=== PATIENT | male | born 1935 | race Caucasian/White ===

== ENCOUNTER → 2018-09-12 | Outpatient (CLI) | payer MEDICARE ==
[~2018-09-12] MED LIST: ADENOSINE 57 MG in GIVE UN-DILUTED 0 ML IV ONE; ADENOSINE 90 MG/30 ML INJ IV ONE
[2018-09-13 11:53] LABS: Urine Blood TRACE /uL (Negative); Urine Specific Gravity 1.011 (1.001-1.035)
[2018-09-13 12:04] LABS: Basophils # (auto) 0.1 uL; Basophils % (auto) 0.8 % (0.0-2.0); Eosinophils # (auto) 0.2 uL; Hemoglobin 14.6 g/dL (13.5-17.5); Lymphocytes # (auto) 0.8 uL; Lymphocytes % (auto) 10.2 % (10.0-50.0); Mean Corpuscular Hemoglobin 32.5 pg (28.0-32.0); Mean Corpuscular Hgb Conc. 32.5 g/dL (32.0-36.0); Mean Corpuscular Volume 100.1 fL (80.0-100.0); Monocytes # (auto) 0.4 uL; Monocytes % (auto) 5.6 % (0.0-12.0); Neutrophils # (auto) 6.3 uL; Neutrophils % (auto) 81.4 % (37.0-80.0); Nucleated Red Blood Cells % 0.1 %; Platelet Count (auto) 236 10^3/uL (140-450); Red Cell Distribution Width 15.2 % (11.8-14.3); White Blood Cell 7.7 10^3/uL (4.4-10.8)
[2018-09-13 12:16] LABS: Albumin 3.8 g/dL (3.4-5.0); Calcium 8.8 mg/dL (8.5-10.1); Potassium 4.2 mmol/L (3.5-5.1)
[2018-09-13 12:20] LABS: Free T4 (Free Thyroxine) 1.28 ng/dL (0.89-1.76)
[2018-09-13 12:22] LABS: BUN/Creatinine Ratio 21.1; Bilirubin, Total 1.4 mg/dL (0.2-1.0); Total Protein 7.2 g/dL (6.4-8.2)
[2018-09-13 12:25] LABS: Prostate Specific Antigen 9.99 ng/mL (0.0-4.0)
== END | disposition home or self-care (01) ==
LOC: Rad HDHVI 13:56
PROVIDERS: ATTEND Internal Medicine Cardiovascular Disease
DX: Z13.1 Encounter for screening for diabetes mellitus (principal); I08.0 Rheumatic disorders of both mitral and aortic valves; E03.9 Hypothyroidism, unspecified; E55.9 Vitamin D deficiency, unspecified; C61 Malignant neoplasm of prostate; E29.1 Testicular hypofunction; D51.9 Vitamin B12 deficiency anemia, unspecified; N39.0 Urinary tract infection, site not specified
CPT/HCPCS: 36415; 78452; 80053; 80061; 81003; 82306; 82607; 83036; 84153; 84154; 84403; 84439; 84443; 85025; 93005; 93306; 96374; 96375; A9500; J0153

== ENCOUNTER 2018-11-17 10:02 | Inpatient (IN) | payer MEDICARE | END 2018-11-24 19:25 | disposition home or self-care (01) | LOC: ER 10:02 → TELE 10:03 → TELE-EAST 14:32 | DX: A41.9 Sepsis, unspecified organism (principal); N39.0 Urinary tract infection, site not specified; N17.9 Acute kidney failure, unspecified; I95.9 Hypotension, unspecified; G20 Parkinson's disease; I48.91 Unspecified atrial fibrillation; E86.9 Volume depletion, unspecified; G90.9 Disorder of the autonomic nervous system, unspecified ==

== ENCOUNTER 2018-12-09 13:31 | Inpatient (IN) | payer MEDICARE ==
[~2018-12-09] VITALS: Ht 175.3 cm; Wt 79.4 kg
[~2018-12-09 13:31] MED LIST changes: -ADENOSINE 57 MG in GIVE UN-DILUTED 0 ML IV ONE; -ADENOSINE 90 MG/30 ML INJ IV ONE; +ALLO300T2 PO; +ALPR0.254 PO; +AMIO200T33 PO; +BISA-4 PO; +CARB25TA22 PO; +FINA5TAB4 PO; +HYDR-4683 PO; +MEGE40TA15 PO; +METO25TA5 PO; +PANT1INJ3 PO; +POTA10TA51 PO; +PRA25T PO; +PRAV20TA3 PO; +RIV20T PO; +SENN1TAB14 PO; +TAMS0.4C36 PO
[2018-12-09] MEDS ORDERED: SODIUM CHLORIDE 0.9% 1,000 ML IVB ONE (14:13)
[2018-12-09 15:15] LABS: Basophils # (auto) 0 uL; Basophils % (auto) 0.2 % (0.0-2.0); Eosinophils # (auto) 0.1 uL; Eosinophils % (auto) 0.5 % (0.0-7.0); Hemoglobin 14.4 g/dL (13.5-17.5); Lymphocytes # (auto) 0.6 uL; Mean Corpuscular Hgb Conc. 32.7 g/dL (32.0-36.0); Mean Corpuscular Volume 97.9 fL (80.0-100.0); Monocytes # (auto) 0.5 uL; Monocytes % (auto) 2.8 % (0.0-12.0); Neutrophils # (auto) 15.1 uL; Neutrophils % (auto) 92.5 % (37.0-80.0); Platelet Count (auto) 199 10^3/uL (140-450); Red Cell Distribution Width 14.8 % (11.8-14.3); White Blood Cell 16.3 10^3/uL (4.4-10.8)
[2018-12-09 15:22] LABS: INR 1.04 (0.9-1.15); Partial Thromboplastin Time 31.9 sec (23.64-32.05)
[2018-12-09 15:44] LABS: Albumin 3.4 g/dL (3.4-5.0); Anion Gap 7 (5-15); Blood Urea Nitrogen 23 mg/dL (7-18); Calcium 8.8 mg/dL (8.5-10.1); Carbon Dioxide 21 mmol/L (21-32); Chloride 108 mmol/L (98-107); Glucose 81 mg/dL (74-106); Magnesium 2.2 mg/dL (1.6-2.6); Potassium 4.2 mmol/L (3.5-5.1); Sodium 136 mmol/L (136-145)
[2018-12-09 15:50] LABS: Alanine Aminotransferase 6 U/L (16-61); Alkaline Phosphatase 121 U/L (45-117); Aspartate Aminotransferase 10 U/L (15-37); BUN/Creatinine Ratio 14.6; Bilirubin, Total 1.9 mg/dL (0.2-1.0); GFR African American 55 mL/min; GFR Non-African American 45 mL/min; Total Protein 6.6 g/dL (6.4-8.2)
[2018-12-09 16:36] LABS: Urine Bacteria FEW /hpf (None Seen); Urine Blood 1+ /uL (Negative); Urine Mucus MODERATE (None Seen); Urine Specific Gravity 1.014 (1.001-1.035); Urine WBC 142 /hpf (0 - 3); Urine WBC Clumps PRESENT /hpf (None Seen)
[2018-12-09] MEDS ORDERED: SODIUM CHLORIDE 0.9% 1,000 ML IV ONE (17:00)
[2018-12-09] MEDS ORDERED: cefTRIAXone 1GM/50ML D5W 50 ML IV ONE (17:00)
[2018-12-09] MEDS ORDERED: BISACODYL 5 MG EC TAB PO PRN ×2 (18:30→23:15)
[2018-12-09] MEDS ORDERED: MORPHINE SULF INJ 2 MG/ML SYRINGE 1ML IV PRN ×2 (18:30→23:30)
[2018-12-09] MEDS ORDERED: NITROGLYCERIN 0.4 MG SL TAB SL PRN ×2 (18:30→23:15)
--- NOTE | 2018-12-09 19:52 | NUR ---
Telemetry admit from [facility] admitted to Telemetry unit after SBAR received from Nereida. Patient oriented to ONEIDA MARIN RN primary RN, unit, room, bed, and unit policies regarding patient care and visiting hours. Patient now on continuous telemetry monitoring, tele box # 28 and telemetry reading on arrival to unit is A-fib. Randall is in place, hung below bladder and draining yelena colored urine with blood noted. Patient is alert to self only, no complaints of pain or S/S of SOB or distress. Sitter is at bedside for safety precautions. Patient weighed by bedscale and encouraged to call if they need something. All questions and concerns addressed, patient verbalized understanding.
[2018-12-09 20:32] VITALS: BP 159/94
--- NOTE | 2018-12-09 21:20 | NUR ---
Patient's called, after giving the password she was updated on patient's status. She provided the list of medications the patient currently takes at home to complete the medication reconciliation.
[2018-12-09] MEDS ORDERED: ALBU2TAB4 NEB (21:32)
[2018-12-09] MEDS ORDERED: DOCU-94 PO (21:32)
[2018-12-09] MEDS ORDERED: FURO40TA4 PO (21:32)
[2018-12-09] MEDS ORDERED: APIX2.5T OR (21:32)
[2018-12-09] MEDS ORDERED: CARBIDOPA W LEVODOPA 25/100mg TABLET PO SCH (22:00)
[2018-12-09] MEDS ORDERED: PRAMIPEXOLE DIHYDROCHLORIDE MO 0.25 MG TAB PO SCH (22:00)
[2018-12-09] MEDS ORDERED: HYDROcodone-ACET 5/325MG TAB PO SCH (22:00)
[2018-12-09] MEDS ORDERED: SODIUM CHLORIDE 0.9% 1,000 ML IV SCH (22:00)
[2018-12-09] MEDS ORDERED: MEGESTROL ACETATE 20 MG TAB PO SCH (22:00)
[2018-12-09] MEDS ORDERED: PRAVASTATIN SODIUM 20 MG TAB PO SCH (22:00)
--- NOTE | 2018-12-09 23:06 | NUR ---
I called after hours pharmacy because the medications were not showing up in the medication pyxis and was told it was an IT issue.
--- NOTE | 2018-12-09 23:15 | NUR ---
Renewed the medications on the orders and called after hours pharmacy to ask them to verify the orders, they stated they will work on it but it may take a bit because they are helping a few people before me who are also having issues.
[2018-12-10] MEDS ORDERED: PRAVASTATIN SODIUM 20 MG TAB ONE (00:06)
[2018-12-10] MEDS ORDERED: PRAMIPEXOLE DIHYDROCHLORIDE MO 0.25 MG TAB ONE (00:06)
--- NOTE | 2018-12-10 00:11 | NUR ---
2200 medications given late due to trouble with the medications being available on the pyxis.
--- NOTE | 2018-12-10 00:20 | NUR ---
Two wound care photos taken of right arm. Paperwork was placed in central because I used the central wing wound care camera.
[2018-12-10 05:03] VITALS: BP 140/81
[2018-12-10] MEDS: HYDROcodone-ACET 5/325MG TAB PO SCH ×3 (05:46→21:30)
[2018-12-10] MEDS: CARBIDOPA W LEVODOPA 25/100mg TABLET PO SCH ×4 (05:47→21:29)
[2018-12-10] MEDS: PANTOPRAZOLE 40 MG TAB PO SCH (05:49)
[2018-12-10 09:00] VITALS: BP 132/75
[2018-12-10] MEDS ORDERED: ALLOPURINOL 100 MG TAB PO SCH (10:00)
[2018-12-10] MEDS ORDERED: FINASTERIDE 5 MG TAB PO SCH (10:00)
[2018-12-10] MEDS: TAMSULOSIN HYDROCHLORIDE 0.4 MG CAP PO SCH (10:00)
[2018-12-10] MEDS ORDERED: AMIODARONE HCL 200 MG TAB PO SCH (10:00)
[2018-12-10] MEDS ORDERED: TAMSULOSIN HYDROCHLORIDE 0.4 MG CAP PO SCH (10:00)
[2018-12-10] MEDS ORDERED: cefTRIAXone 1GM/50ML D5W 50 ML IV SCH ×2 (10:00→17:00)
[2018-12-10] MEDS: MEGESTROL ACETATE 20 MG TAB PO SCH ×2 (10:00→21:29)
[2018-12-10] MEDS: AMIODARONE HCL 200 MG TAB PO SCH (10:00)
[2018-12-10] MEDS ORDERED: METOPROLOL SUCCINATE XL 50 MG TAB PO SCH (10:00)
[2018-12-10] MEDS ORDERED: PANTOPRAZOLE 40 MG TAB PO SCH (10:00)
[2018-12-10] MEDS: FINASTERIDE 5 MG TAB PO SCH (10:33)
[2018-12-10] MEDS: ALLOPURINOL 100 MG TAB PO SCH (10:34)
[2018-12-10] MEDS: METOPROLOL SUCCINATE XL 50 MG TAB PO SCH (10:34)
[2018-12-10 13:00] VITALS: BP 121/66
[2018-12-10 17:00] VITALS: BP 139/69
[2018-12-10] MEDS: cefTRIAXone 1GM/50ML D5W 50 ML IV SCH (18:55)
--- NOTE | 2018-12-10 19:13 | NUR ---
Opening Shift Note Assumed care of patient, awake and alert to self. Sitter is at bedside for safety. Randall is in place, hung below the bladder and draining bloody urine. No S/S of distress/SOB or pain. Instructed on POC and to call for assist PRN, will continue to monitor for changes Q1hr and PRN.
[2018-12-10] MEDS: PRAMIPEXOLE DIHYDROCHLORIDE MO 0.25 MG TAB PO SCH (21:29)
[2018-12-10] MEDS: PRAVASTATIN SODIUM 20 MG TAB PO SCH (21:30)
[2018-12-10 22:00] VITALS: BP 133/85
[2018-12-11] MEDS: SODIUM CHLORIDE 0.9% 1,000 ML IV SCH ×2 (01:35→13:03)
[2018-12-11 05:00] VITALS: BP 126/90
[2018-12-11] MEDS: HYDROcodone-ACET 5/325MG TAB PO SCH ×3 (06:00→21:47)
[2018-12-11] MEDS: CARBIDOPA W LEVODOPA 25/100mg TABLET PO SCH ×4 (06:24→21:44)
[2018-12-11] MEDS: PANTOPRAZOLE 40 MG TAB PO SCH (06:26)
--- NOTE | 2018-12-11 07:20 | NUR ---
PT AWAKE, ALERT, ORIENTED TO PERSON, , PLACE. PT DENIES DISCOMFORT AT MOMENT. EFFORTLESS BREATHING ON ROOM AIR. IV PRESENT AND INFUSING WELL TO LFA#22. MCNALLY CATHETER IN PLACE, SECURED, FREE OF KINKS, PATENT WITH DARK ROBER URINE IN COLLECTING BAG. BED LOCKED AND IN LOWEST POSITION, CALL LIGHT WITHIN REACH, PT UNDER CLOSE OBSERVATION. WILL CONTINUE TO MONITOR.
[2018-12-11 09:00] VITALS: BP 104/59
--- NOTE | 2018-12-11 10:40 | NUR ---
HYGIENE CARE PROVIDED. HYDRA-GUARD WITH OPTIFOAM DRESSING APPLIED TO SACRAL BLANCHABLE ERYTHEMA (BONY PROMINENCE). COMFORTABLE ENVIRONMENT PROVIDED, CALL LIGHT WITHIN REACH. SITTER AT BEDSIDE.
[2018-12-11] MEDS: cefTRIAXone 1GM/50ML D5W 50 ML IV SCH (10:43)
[2018-12-11] MEDS: AMIODARONE HCL 200 MG TAB PO SCH (10:43)
[2018-12-11] MEDS: ALLOPURINOL 100 MG TAB PO SCH (10:44)
[2018-12-11] MEDS: MEGESTROL ACETATE 20 MG TAB PO SCH ×2 (10:44→21:43)
[2018-12-11] MEDS: FINASTERIDE 5 MG TAB PO SCH (10:44)
[2018-12-11] MEDS: TAMSULOSIN HYDROCHLORIDE 0.4 MG CAP PO SCH (10:45)
[2018-12-11] MEDS: METOPROLOL SUCCINATE XL 50 MG TAB PO SCH (10:46)
[2018-12-11 13:00] VITALS: BP 128/62
--- NOTE | 2018-12-11 15:50 | NUR ---
assessment Patient is a 83 year old male who is confused. Per patients Angela patient lived home with her and their son prior to admission. Per Angela she and her son assist patient at home. Per Angela patient has a hospital bed, wheelchair, and fww for home use. Patients PCP is Dr Moser. Patient is on service with [employer]. Patient will need a resumption order for home health on discharge. Angela verbalized understanding and agreed to discharge plan home on discharge. Addendum: 12/13/18 at 1600 by Laila YEPEZ Amended: Links added.
[2018-12-11 17:00] VITALS: BP 155/90
--- NOTE | 2018-12-11 18:50 | NUR ---
MCNALLY CATHETER CARE COMPLETED.
[2018-12-11] MEDS: PRAMIPEXOLE DIHYDROCHLORIDE MO 0.25 MG TAB PO SCH (21:43)
[2018-12-11] MEDS: PRAVASTATIN SODIUM 20 MG TAB PO SCH (21:44)
[2018-12-11 22:00] VITALS: BP 146/73
[2018-12-12] MEDS: SODIUM CHLORIDE 0.9% 1,000 ML IV SCH ×2 (03:57→17:31)
[2018-12-12 05:00] VITALS: BP 131/78
[2018-12-12] MEDS: HYDROcodone-ACET 5/325MG TAB PO SCH ×3 (06:00→21:27)
[2018-12-12] MEDS: PANTOPRAZOLE 40 MG TAB PO SCH (06:53)
[2018-12-12] MEDS: CARBIDOPA W LEVODOPA 25/100mg TABLET PO SCH ×4 (06:53→21:26)
--- NOTE | 2018-12-12 08:00 | NUR ---
Sitter at bedside for patient safety.
--- NOTE | 2018-12-12 08:00 | NUR ---
Opening Shift Note Assumed care of patient, awake, alert and oriented X2. No S/S of distress/SOB or pain. Tele# 28, sinus rhythm @ 95 bpm. IV to left forearm, 22 gauge, patent and infusing 0.9% NS @ 75 ml/hr. Urethral Randall catheter, draining clear, yellow urine to gravity. Instructed on POC and to call for assist PRN, verbalized understanding. Patient is aspiration precautions. Bed locked, in lowest position, call light within reach, will continue to monitor for changes Q1hr and PRN.
[2018-12-12 09:00] VITALS: BP 105/49
[2018-12-12] MEDS: AMIODARONE HCL 200 MG TAB PO SCH (10:00)
[2018-12-12] MEDS: TAMSULOSIN HYDROCHLORIDE 0.4 MG CAP PO SCH (10:00)
[2018-12-12] MEDS: METOPROLOL SUCCINATE XL 50 MG TAB PO SCH (10:00)
[2018-12-12] MEDS: cefTRIAXone 1GM/50ML D5W 50 ML IV SCH (12:13)
[2018-12-12] MEDS: FINASTERIDE 5 MG TAB PO SCH (12:14)
[2018-12-12] MEDS: MEGESTROL ACETATE 20 MG TAB PO SCH ×2 (12:14→21:26)
[2018-12-12] MEDS: ALLOPURINOL 100 MG TAB PO SCH (12:15)
[2018-12-12 13:00] VITALS: BP 153/78
[2018-12-12] MEDS ORDERED: MAGNESIUM CITRATE SOLUTION 300 ML BTL PO ONE (15:30)
[2018-12-12 17:00] VITALS: BP 112/58
--- NOTE | 2018-12-12 17:20 | NUR ---
Per consult for home health. Information and choice letter was given to Pt. Pt requested [facility]. Pt agrees and understand d/c plan. Contacted [facility] Ph: ) Fax: ( [phone] faxed medical records. Per Ted from [facility] Pt has been accepted and service to start within 48 hours upon d/c. Informed SHIRLENE Rajput. Addendum: 12/12/18 at 1723 by PHILIPPE RIOS Amended: Links added.
--- NOTE | 2018-12-12 19:34 | NUR ---
Care endorsed to SHIRLENE Vazquez, night nurse.
--- NOTE | 2018-12-12 20:00 | NUR ---
Opening Shift Note Assumed care of patient, awake and alert. No S/S of distress/SOB or pain. Instructed on POC and to call for assist PRN, will continue to monitor for changes Q1hr and PRN.Randall cath. in placed draining yellow urine output min. hematuria.
[2018-12-12] MEDS: PRAVASTATIN SODIUM 20 MG TAB PO SCH (21:37)
[2018-12-12] MEDS: PRAMIPEXOLE DIHYDROCHLORIDE MO 0.25 MG TAB PO SCH (21:37)
[2018-12-12 22:07] VITALS: BP 155/77
[2018-12-13] MEDS: PANTOPRAZOLE 40 MG TAB PO SCH (05:30)
[2018-12-13] MEDS: CARBIDOPA W LEVODOPA 25/100mg TABLET PO SCH ×4 (05:30→22:39)
[2018-12-13] MEDS: HYDROcodone-ACET 5/325MG TAB PO SCH ×3 (05:31→22:39)
[2018-12-13 05:50] VITALS: BP 140/80
[2018-12-13] MEDS: SODIUM CHLORIDE 0.9% 1,000 ML IV SCH ×2 (06:03→22:45)
--- NOTE | 2018-12-13 07:09 | NUR ---
Report given to Josy Ahn, patient is resting no distress.
--- NOTE | 2018-12-13 08:00 | NUR ---
Opening Shift Note Assumed care of patient, awake, alert and oriented X2, to self and year. No S/S of distress/SOB or pain. Tele# 28, A-Fib @ 76 bpm. IV to left forearm, 22 gauge, patent and infusing 0.9$ NS @ 75 ml/hr. Urethral Randall catheter draining clear, light yelena urine to gravity. Instructed on POC and to call for assist PRN, verbalized understanding but requires frequent reminding and reorienting. Bed locked, in lowest position, call light within reach, sitter remains at bedside for patient safety, will continue to monitor for changes Q1hr and PRN.
[2018-12-13 08:49] VITALS: BP 137/76
[2018-12-13] MEDS: cefTRIAXone 1GM/50ML D5W 50 ML IV SCH (10:01)
[2018-12-13] MEDS: AMIODARONE HCL 200 MG TAB PO SCH (10:02)
[2018-12-13] MEDS: MEGESTROL ACETATE 20 MG TAB PO SCH ×2 (10:02→22:38)
[2018-12-13] MEDS: TAMSULOSIN HYDROCHLORIDE 0.4 MG CAP PO SCH (10:02)
[2018-12-13] MEDS: FINASTERIDE 5 MG TAB PO SCH (10:02)
[2018-12-13] MEDS: METOPROLOL SUCCINATE XL 50 MG TAB PO SCH (10:03)
[2018-12-13] MEDS: ALLOPURINOL 100 MG TAB PO SCH (10:05)
--- NOTE | 2018-12-13 11:00 | NUR ---
WOUND CARE NOTE: ADDED PATIENT TO SKIN INTEGRITY MONITORING AT THIS TIME, D/T LOW TOMAS SCOR 11. PATIENT WAS ADMITED TO [facility] WITH DIAGNOSIS OF HEMATURIA. CURRENT TOMAS SCORE IS 11. PATIENT RECENTLY AMBULATED IN HALLWAY WITH ASSISTANCE BY PHYSICAL THERAPY. HE IS WOUND FREE AT THIS TIME. SKIN/WOUND CARE PLAN IMPLEMENTED. PATIENT SHOULD BE TURNED/REPOSITIONED Q 2 HOURS, PRN WHEN IN BED, WITH PRESSURE REDISTRIBUTION USING PILLOWS/WEDGES, BID/PRN APPLICATION WITH MOISTURE BARRIER CREAM, OPTIFOAM GENTLE SACRAL DRESSING PREVENTATIVE, SKIN/WOUND CARE PLAN, DIETARY CONSULT FOR LOW TOMAS 11, CONTINUED MONITORING BY WOUND CARE TEAM.
--- NOTE | 2018-12-13 12:00 | NUR ---
ROUNDS Dr Jimy Nails at bedside for rounds. New orders received and followed through. Patient and at bedside updated on plan of care, verbalized understanding.
--- NOTE | 2018-12-13 12:17 | NUR ---
Nutrition Assessment Notes please see attached link for complete assessment Est. Needs BW [id number] kcal (25-30 kcal/kgBW), 60-75 gms pro (0.8-1.0 gms/kgBW r/t elev RFT). Will continue to monitor pertinent labs and reassess nutrient need prn Addendum: 12/13/18 at [address] Amended: Links added.
[2018-12-13 12:42] VITALS: BP 133/74
--- NOTE | 2018-12-13 16:13 | NUR ---
ABD/PELVIC CT Awaiting abd/pelvic CT results completed @ 7015. Spoke to Eveline in radiology, informed we need the report, per Eveline, she will inform the [facility] to contact the department.
[2018-12-13 16:48] VITALS: BP 130/78
--- NOTE | 2018-12-13 17:30 | NUR ---
UROLOGY Kayce Scherer at bedside for Urology consult, new orders received and followed through. Patient updated on plan of care, verbalized understanding.
--- NOTE | 2018-12-13 18:51 | NUR ---
IV removal IV DC'd to left forearm with sterile technique, catheter fully intact. Pressure dressing applied to site.Patient tolerated procedure well. Discharged with aftercare instructions per MD. IV insertion IV access obtained, via clean sterile technique by inserting 22 gauge catheter at right hand after 3 attempt(s). IV secured properly. No trauma to site. Patient tolerated procedure well.
--- NOTE | 2018-12-13 19:00 | NUR ---
Care endorsed to SHIRLENE Dubois, night nurse.
[2018-12-13 21:15] VITALS: BP 117/68
[2018-12-13] MEDS: PRAVASTATIN SODIUM 20 MG TAB PO SCH (22:38)
[2018-12-13] MEDS: PRAMIPEXOLE DIHYDROCHLORIDE MO 0.25 MG TAB PO SCH (22:38)
--- NOTE | 2018-12-13 22:54 | NUR ---
Called/paged Dr. Moser called re:request for breathing treatment order for wheezing hx of copd saturation 95%on 2L NC . Waiting for call back. Continue care.
[2018-12-14 04:43] VITALS: BP 124/72
[2018-12-14] MEDS: HYDROcodone-ACET 5/325MG TAB PO SCH (06:00)
[2018-12-14] MEDS: PANTOPRAZOLE 40 MG TAB PO SCH (06:43)
[2018-12-14] MEDS: CARBIDOPA W LEVODOPA 25/100mg TABLET PO SCH ×2 (06:43→14:30)
[2018-12-14] MEDS: SODIUM CHLORIDE 0.9% 1,000 ML IV SCH (06:44)
--- NOTE | 2018-12-14 07:30 | NUR ---
OPENING NOTE ASSUMED CARE OF PATIENT. PATIENT ALERT AND ORIENTED TO SELF. NO SINGS OF SOB/DISTRESS. BED SET TO LOWEST POSITION/LOCKED. BEDSIDE RAILS UP X2. BED ALARM ON. CALL LIGHT WITHIN REACH. WILL CONTINUE TO MONITOR Q1HR AND PRN.
[2018-12-14 08:39] VITALS: BP 163/85
[2018-12-14] MEDS: TAMSULOSIN HYDROCHLORIDE 0.4 MG CAP PO SCH (09:14)
[2018-12-14] MEDS: MEGESTROL ACETATE 20 MG TAB PO SCH (09:14)
[2018-12-14] MEDS: cefTRIAXone 1GM/50ML D5W 50 ML IV SCH (09:14)
[2018-12-14] MEDS: FINASTERIDE 5 MG TAB PO SCH (09:14)
[2018-12-14] MEDS: AMIODARONE HCL 200 MG TAB PO SCH (09:15)
[2018-12-14] MEDS: METOPROLOL SUCCINATE XL 50 MG TAB PO SCH (09:15)
[2018-12-14] MEDS: ALLOPURINOL 100 MG TAB PO SCH (09:15)
[2018-12-14 12:34] VITALS: BP 153/88
[2018-12-14 14:48] VITALS: BP 153/88
--- NOTE | 2018-12-14 15:43 | NUR ---
Discharge instructions and paperwork given as MD ordered. Patient is to follow-up with Dr. Moser on 01/10/19 @ 2:50PM. [id number], [place] [address]. . All questions and concerns addressed with patients . verbalized understanding. IV removed with catheter intact, pressure dressing applied. Telemetry unit returned to ICU.
--- NOTE | 2018-12-14 16:28 | NUR ---
Patient taken to vehicle via wheelchair with all personal belongings, accompanied by staff and family member. No distress noted at time of departure.
== END 2018-12-14 17:00 | disposition home health service (06) | DRG 871 ==
LOC: ER 13:31 → TELE 13:32 → ER 16:08 → TELE 19:49 → TELE-WESTW 23:03
PROVIDERS: ADMIT Internal Medicine Cardiovascular Disease; ATTEND Family Medicine
DX: A41.9 Sepsis, unspecified organism (principal); G93.41 Metabolic encephalopathy; N13.8 Other obstructive and reflux uropathy; N39.0 Urinary tract infection, site not specified; N40.1 Benign prostatic hyperplasia with lower urinary tract symptoms; G20 Parkinson's disease; E86.9 Volume depletion, unspecified; F02.80 Dementia in other diseases classified elsewhere, unspecified severity, without behavioral disturbance, psychotic disturbance, mood disturbance, and anxiety; I11.0 Hypertensive heart disease with heart failure; I50.9 Heart failure, unspecified; I48.91 Unspecified atrial fibrillation; J44.9 Chronic obstructive pulmonary disease, unspecified; I70.0 Atherosclerosis of aorta; K46.9 Unspecified abdominal hernia without obstruction or gangrene; N40.0 Benign prostatic hyperplasia without lower urinary tract symptoms; N32.0 Bladder-neck obstruction; Z86.73 Personal history of transient ischemic attack (TIA), and cerebral infarction without residual deficits; Z80.1 Family history of malignant neoplasm of trachea, bronchus and lung; Z80.3 Family history of malignant neoplasm of breast; I25.2 Old myocardial infarction; Z82.49 Family history of ischemic heart disease and other diseases of the circulatory system; Z74.01 Bed confinement status; Z88.5 Allergy status to narcotic agent; Z79.01 Long term (current) use of anticoagulants; Z90.49 Acquired absence of other specified parts of digestive tract
CPT/HCPCS: 36415; 51702; 70450; 71045; 74176; 80053; 81001; 82962; 83605; 83735; 84484; 85025; 85610; 85730; 87040; 87086; 93005; 94761; 96374; G0378; J0696

== ENCOUNTER 2019-01-16 19:11 | Emergency (ER) | payer MEDICARE ==
[~2019-01-16] VITALS: Ht 177.8 cm; Wt 104.3 kg
[~2019-01-16 19:11] MED LIST changes: +ALBU2TAB4 NEB; +APIX2.5T OR; +DOCU-94 PO; +FURO40TA4 PO; -HYDR-4683 PO; +HYDR-4833 PO; -RIV20T PO
[2019-01-16] MEDS ORDERED: IPRATROPIUM BROM 0.5 MG/2.5ML INH SOL NEB ONE (21:15)
[2019-01-16] MEDS ORDERED: ALBUTEROL SULF 2.5 MG/0.5ML(0.5%) NEB SOLN NEB ONE (21:15)
[2019-01-16 21:44] LABS: Basophils # (auto) 0 uL; Eosinophils # (auto) 0.1 uL; Eosinophils % (auto) 1.1 % (0.0-7.0); Hematocrit 38.2 % (41.0-53.0); Hemoglobin 12.5 g/dL (13.5-17.5); Lymphocytes # (auto) 1.1 uL; Lymphocytes % (auto) 8.4 % (10.0-50.0); Mean Corpuscular Hemoglobin 31.6 pg (28.0-32.0); Mean Corpuscular Hgb Conc. 32.7 g/dL (32.0-36.0); Mean Corpuscular Volume 96.5 fL (80.0-100.0); Monocytes # (auto) 0.7 uL; Neutrophils # (auto) 11.3 uL; Neutrophils % (auto) 85.5 % (37.0-80.0); Platelet Count (auto) 233 10^3/uL (140-450); Red Blood Cells 3.96 10^6/uL (4.5-5.90); Red Cell Distribution Width 15.2 % (11.8-14.3); White Blood Cell 13.3 10^3/uL (4.4-10.8)
[2019-01-16 22:03] LABS: Alanine Aminotransferase < 6 U/L (16-61); Albumin 2.8 g/dL (3.4-5.0); Anion Gap 7 (5-15); Blood Urea Nitrogen 27 mg/dL (7-18); Calcium 8.2 mg/dL (8.5-10.1); Carbon Dioxide 24 mmol/L (21-32); Chloride 113 mmol/L (98-107); Glucose 93 mg/dL (74-106); Sodium 144 mmol/L (136-145)
[2019-01-16 22:08] LABS: Alkaline Phosphatase 68 U/L (45-117); Aspartate Aminotransferase 23 U/L (15-37); BUN/Creatinine Ratio 19.7; Bilirubin, Total 0.8 mg/dL (0.2-1.0); GFR African American 64 mL/min; GFR Non-African American 53 mL/min; Total Protein 5.7 g/dL (6.4-8.2)
[2019-01-16 23:11] LABS: INR 0.97 (0.9-1.15); Partial Thromboplastin Time 28.2 sec (23.64-32.05)
[2019-01-16 23:51] LABS: Urine Bacteria MOD /hpf (None Seen); Urine Blood 3+ /uL (Negative); Urine Hyaline Cast MOD /lpf (0 - 2); Urine Mucus FEW (None Seen); Urine WBC 320 /hpf (0 - 3)
[2019-01-17 02:00] VITALS: BP 132/73
== END 2019-01-17 02:05 ==
LOC: EDBD 19:11 → ER 19:11
DX: J45.901 Unspecified asthma with (acute) exacerbation (principal); F03.90 Unspecified dementia, unspecified severity, without behavioral disturbance, psychotic disturbance, mood disturbance, and anxiety; I48.91 Unspecified atrial fibrillation; N39.0 Urinary tract infection, site not specified; I11.0 Hypertensive heart disease with heart failure; I50.9 Heart failure, unspecified; I25.2 Old myocardial infarction; E78.5 Hyperlipidemia, unspecified; Z88.5 Allergy status to narcotic agent; Z79.899 Other long term (current) drug therapy
CPT/HCPCS: 36415; 70450; 71250; 72125; 80053; 81001; 83880; 84484; 85025; 85610; 85730; 87086; 93005; 94640; 99284; J7611; J7644